=== PATIENT | female | born 1965 | race Caucasian/White ===

== ENCOUNTER 2017-02-06 08:50 | Emergency (ER) | payer OTHER ==
[2017-02-06 08:55] VITALS: TEMP 98.3; BMI 28.3
--- NOTE | 2017-02-06 10:08 | PDOC ---
History of Present Illness - General History Source: Patient Exam Limitations: No Limitations - History of Present Illness Initial Comments: 02/06/17 10:12 The patient is a 51 year old female, with a significant past medical history of hypothyroidism, who presents to the emergency department with dizziness, nausea , palpitations while at work today. She states that her heart has been racing for the past week. She states that she was set to see a director bioinformatics this upcoming Sunday for evaluation of possible new onset hypertension. She states that last week she biked 76 miles and exercises regularly without any complications. She states that she has stopped any stimulating habits such as alcohol and caffeine since finding out that she may have hypertension. The patient denies chest pain, shortness of breath and headache. Denies fever, chills, vomit, diarrhea and constipation. Denies dysuria, frequency, urgency and hematuria. Allergies: None Past surgical history: Left knee surgery Social history: No alcohol, tobacco or drug use reported <Satya Natarajan - Last Filed: 02/06/17 11:50> - General History Source: Patient Exam Limitations: No Limitations <Ada Ritchie - Last Filed: 02/07/17 08:34> - General Chief Complaint: Lightheaded Stated Complaint: HEART PALPITATIONS, DIZZINESS Time Seen by Provider: 02/06/17 09:44 Past History <Satya Natarajan - Last Filed: 02/06/17 11:50> - Past Medical History HTN: Yes (border line) Thyroid Disease: Yes (hypo) - Psycho/Social/Smoking Cessation Hx Anxiety: No Suicidal Ideation: No Smoking History: Never smoked Information on smoking cessation initiated: No Hx Alcohol Use: No Drug/Substance Use Hx: No Substance Use Type: None <Ada Ritchie - Last Filed: 02/07/17 08:34> - Past Medical History Allergies/Adverse Reactions: Allergies Allergy/AdvReac Type Severity Reaction Status Date / Time No Known Allergies Allergy Verified 02/06/17 08:52 Home Medications: Ambulatory Orders Levothyroxine [Synthroid -] 50 mcg PO DAILY 02/06/17 Triamcinolone Acetonide [Nasacort] 10.8 ml NS DAILY 02/06/17 Review of Systems - Review of Systems Able to Perform ROS?: Yes Comments:: 02/06/17 10:13 GENERAL/CONSTITUTIONAL: No: fever, chills, weakness, loss of appetite. HEAD, EYES, EARS, NOSE AND THROAT: No: change in vision, ear pain, discharge, sore throat, throat swelling. CARDIOVASCULAR: (+) Palpitations. No: chest pain, lightheadedness, syncope RESPIRATORY: No: cough, shortness of breath, wheezing, hemoptysis, stridor. GASTROINTESTINAL: (+) Nausea. No: vomiting, abdominal cramping, diarrhea, rectal bleeding, constipation. GENITOURINARY: No: dysuria, hematuria, frequency, urgency, flank pain. MUSCULOSKELET AL: No: back pain, neck pain, joint pain, muscle swelling or pain SKIN AND BREASTS: No: lesions, pallor, rash or easy bruising. NEUROLOGIC: (+) Dizziness. No: headache, paresthesias, weakness ENDOCRINE: No: unexplained weight gain or loss HEMATOLOGIC/LYMPHATIC: No: anemia, easy bleeding, swelling nodes <Satya Natarajan - Last Filed: 02/06/17 11:50> *Physical Exam - Vital Signs Last Vital Signs Temp Pulse Resp BP Pulse Ox 98.3 F 84 18 169/94 100 02/06/17 08:52 02/06/17 08:52 02/06/17 08:52 02/06/17 08:52 02/06/17 08:52 - Physical Exam Comments: 02/06/17 10:13 GENERAL: The patient is in no acute distress. HEAD: Normal with no signs of trauma. EYES: PERRLA, EOMI, sclera anicteric, conjunctiva clear. ENT: Ears normal, nares patent, oropharynx clear without exudates. Moist mucous membranes. NECK: Normal range of motion, supple without lymphadenopathy, JVD, or masses. LUNGS: Breath sounds equal, clear to auscultation bilaterally. No wheezes, and no crackles. HEART:Regular rate and rhythm, normal S1 and S2 without murmur, rub or gallop. ABDOMEN: Soft, nontender, normoactive bowel sounds. No guarding, no rebound. EXTREMITIES: Normal range of motion, no edema. No clubbing or cyanosis. No erythema, or tenderness. NEUROLOGICAL: Cranial nerves II through XII grossly intact. Normal speech. No focal neurological deficits. MUSCULOSKELETAL: Back non-tender to palpation, no CVA tenderness SKIN: Warm, Dry, normal turgor, no rashes or lesions noted. <Satya Natarajan - Last Filed: 02/06/17 11:50> - Vital Signs Last Vital Signs Temp Pulse Resp BP Pulse Ox 98.3 F 84 18 169/94 100 02/06/17 08:52 02/06/17 08:52 02/06/17 08:52 02/06/17 08:52 02/06/17 08:52 <Ada Ritchie - Last Filed: 02/07/17 08:34> Heart Score/ECG Review #1 ECG reviewed & interpreted by me at: 14:08 02/06/17 14:08 Twelve-lead EKG was performed and reviewed by me. There is normal sinus rhythm with a normal rate of 87bpm. The axis is normal. The intervals are normal. There are no ST or T wave abnormalities. <Ada Ritchie - Last Filed: 02/07/17 08:34> ED Treatment Course - LABORATORY CBC & Chemistry Diagram: 02/06/17 10:00 02/06/17 10:00 <Satya Natarajan - Last Filed: 02/06/17 11:50> - LABORATORY CBC & Chemistry Diagram: 02/06/17 10:00 02/06/17 10:00 <Ada Ritchie - Last Filed: 02/07/17 08:34> Medical Decision Making - Medical Decision Making 02/06/17 11:50 Dr. Oliver was called regarding the patient at 10:56am. Dr. Oliver was consulted regarding the patient at 11:39am [phone] <Satya Natarajan - Last Filed: 02/06/17 11:50> - Medical Decision Making 02/06/17 10:07 A portion of this note was documented by scribe services under my direction. I have reviewed the details of the note, within reason, and agree with the documentation with the following case summary and management plan written by me. Nursing documentation reviewed and incorporated into medical decision making This is a 51 yo F with a history of hypothyroidism who presents to the Er with a complaint of lightheadedness She states she was in her usual state of health until this morning at work She was standing waiting to get coffee She noticed that she felt lightheaded (not vertiginous) She denies chest pain She denies palpitations She did feel nauseous No syncope No headache No focal weakness or numbness She states she could feel her heart beating fast but it did not feel irregular DD: arrhythmia, ACS, hyperthyroidism, electrolyte abnormality 02/06/17 10:51 Laboratory Tests 02/06/17 02/06/17 10:00 10:00 WBC 6.0 Hgb 13.9 Hct 41.7 Plt Count 243 Neutrophils % 69.9 Lymphocytes % 20.8 Sodium 140 Potassium 4.2 Chloride 102 Carbon Dioxide 26 Anion Gap 12 BUN 17 Creatinine 0.7 Random Glucose 92 Creatine Kinase 76 Troponin I < 0.02 02/06/17 10:51 02/06/17 13:[address] Oliver in the ER ECHO ordered ECHO reviewed by Dr Oliver Will plan to discharge to home Will give copies of all results Pt has appointment with cardiology this Sunday Clinical impression: palpitations Dr Oliver has arranged for this patient to have a Holter monitor! She should wear it tonight and return it tomorrow <Ada Ritchie - Last Filed: 02/07/17 08:34> *DC/Admit/Observation/Transfer - Attestations Scribe Attestion: 02/06/17 10:14 Documentation prepared by Satya Natarajan, acting as medical sociologist for Ada Ritchie MD <Satya Natarajan - Last Filed: 02/06/17 11:50> - Discharge Dispostion Admit: No <Ada Ritchie - Last Filed: 02/07/17 08:34> Diagnosis at time of Disposition: Palpitations - Discharge Dispostion Disposition: HOME Condition at time of disposition: Stable - Referrals Referrals: Cate Crowley MD [Primary Care Provider] - - Patient Instructions Printed Discharge Instructions: DI for Dizziness-Nonvertigo, DI for Palpitations Additional Instructions: Ms. Frank Thank you for coming in to the ER today Please follow up with your primary care physian and your Preventive Maintenance Coordinator Please return to the ER for ANY recurrence of symptoms, any new symptoms, any concerns or complaints - Post Discharge Activity Work/School Note: Back to Work
[2017-02-06 10:30] LABS: BASOPHIL 0.5 % (0-2.0); EOSINOPHIL 1.3 % (0-4.5); MCH 32.1 pg (25.7-33.7); MCHC 33.3 g/dl (32.0-36.0); MEAN CELL VOLUME 96.4 fl (80-96); MEAN PLT VOLUME 8.5 fl (7.5-11.1); NEUTROPHILS 69.9 % (42.8-82.8); PLATELET COUNT 243 K/MM3 (134-434); RDW 12.7 % (11.6-15.6)
[2017-02-06 10:37] LABS: ALBUMIN 3.6 g/dl (3.4-5.0); ANION GAP 12 (8-16); BILIRUBIN,TOTAL 0.3 mg/dL (0.2-1.0); CALCIUM 8.6 mg/dL (8.5-10.1); CO2 26 mmol/L (21-32); CREATININE 0.7 mg/dL (0.55-1.02); GLUCOSE,RANDOM 92 mg/dL (74-106); SGOT/AST 20 U/L (15-37); SGPT/ALT 23 U/L (12-78); TOT PROT 7.2 g/dl (6.4-8.2)
--- NOTE | 2017-02-06 10:39 | EKG ---
Test Reason : Blood Pressure : / mmHG Vent. Rate : 087 BPM Atrial Rate : 087 BPM P-R Int : 156 ms QRS Dur : 080 ms QT Int : 364 ms P-R-T Axes : 057 063 054 degrees QTc Int : 438 ms NORMAL SINUS RHYTHM POSSIBLE LEFT ATRIAL ENLARGEMENT BORDERLINE ECG NO PREVIOUS ECGS AVAILABLE Confirmed by VIJAYA ALBERT, ERIC ([id number]) on 02/06/2017 10:39:19 AM Referred By: Confirmed By:ERIC LILLY MD
[2017-02-06 10:40] LABS: ALK PHOS 52 U/L (45-117); TROPONIN I < 0.02 ng/ml (0.00-0.05)
--- NOTE | 2017-02-06 13:21 | CON.CARD ---
Consult Consult Specialty:: cardiiology Reason for Consultation:: palpitations - History of Present Illness History of Present Illness: The patient is a 51 year old white female, with a significant past medical history of hypothyroidism, recentl blood pressure elevation, who presents to the emergency department with dizziness, nausea, palpitations while at work today; she found it difficult to see the words on the page she was reading. She states that her heart has been racing for the past week. She states that she was set to see a pile driver this upcoming Sunday for evaluation of possible new onset hypertension. She states that last week she biked 76 miles and exercises regularly without any complications. She states that she has stopped any stimulating habits such as alcohol and caffeine since finding out that she may have hypertension. The patient denies chest pain, shortness of breath and headache. Denies fever, chills, vomit, diarrhea and constipation. Denies dysuria, frequency, urgency and hematuria. Pt has no history of syncope. Until recently, she was working out regularly. The first episode of palpitations occurred shortly after she had finished a 75 mile bike ride. Allergies: None Past surgical history: Left knee surgery Social history: No alcohol, tobacco or drug use reported - History Source History Provided By: Patient, Medical Record Limitations to Obtaining History: No Limitations - Past Medical History Cardio/Vascular: Yes: HTN (recently noted) Reproductive: Yes: Other (regular menses) Musculoskeletal: Yes: Other (s/p ACL repair left knee) - Past Surgical History Additional Surgical History: left ACL knee repair - Alcohol/Substance Use Hx Alcohol Use: No - Smoking History Smoking history: Never smoked Home Medications - Allergies Allergies/Adverse Reactions: Allergies Allergy/AdvReac Type Severity Reaction Status Date / Time No Known Allergies Allergy Verified 02/06/17 08:52 - Home Medications Home Medications: Ambulatory Orders Levothyroxine [Synthroid -] 50 mcg PO DAILY 02/06/17 Triamcinolone Acetonide [Nasacort] 10.8 ml NS DAILY 02/06/17 Family Disease History - Family Disease History Family Disease History: Heart Disease: Father (SC at 60 yrs old; stents), Brother (unknown exactly what he has) Review of Systems - Review of Systems Constitutional: reports: No Symptoms Eyes: reports: No Symptoms HENT: reports: No Symptoms Neck: reports: No Symptoms Cardiovascular: reports: Palpitations Respiratory: reports: No Symptoms Gastrointestinal: reports: No Symptoms Genitourinary: reports: No Symptoms Breasts: reports: No Symptoms Reported Musculoskeletal: reports: No Symptoms Integumentary: reports: No Symptoms Neurological: reports: No Symptoms Endocrine: reports: No Symptoms Hematology/Lymphatic: reports: No Symptoms Psychiatric: reports: Depression (hx depression years ago; she treated herself, and "I haven't had a problem for years"; denies anxiety/panic.) - Risk Factors Known Risk Factors: Yes: Other (hypothyroid; HTN) Vital Signs: Vital Signs Temperature 98.3 F 02/06/17 08:52 Pulse Rate 84 02/06/17 08:52 Respiratory Rate 18 02/06/17 08:52 Blood Pressure 169/94 02/06/17 08:52 O2 Sat by Pulse Oximetry (%) 100 02/06/17 08:52 Constitutional: Yes: Anxious Eyes: Yes: WNL HENT: Yes: WNL Neck: Yes: WNL Respiratory: Yes: WNL Gastrointestinal: Yes: Soft Renal/: No: Anuria Cardiovascular: Yes: WNL JVD: No Carotid Bruit: No PMI: Non-Displaced Heart Sounds: Yes: S1, S2, S4 Murmur: Yes: Systolic Murmur, Grade 1 Extremities: Yes: WNL Edema: No Integumentary: Yes: WNL Neurological: Yes: Alert, Oriented ...Motor Strength: WNL Psychiatric: Yes: WNL - Other Data Labs, Other Data: CBC, BMP 02/06/17 10:00 02/06/17 10:00 Troponin, BNP 02/06/17 10:00 Troponin I < 0.02 Troponin, BNP 02/06/17 10:00 Troponin I < 0.02 Ejection Fraction %: LVEF > or = 40 % Imaging - Results Ultrasound: Image Reviewed (echo: normal LVEF; mild MR (no MVP); normal chamber sizes) Problem List - Problems (1) Palpitations Assessment/Plan: No arrhythmias noted since coming to ER. EKG: normal sinus rhythm; normal study. ECHO: preliminary results yao normal LVEF and camber sizes; no MVP; mild MR. TNI < 0.02; TSH WNL. Last week, pt stopped coffee (still drinks decaf) and other products she thougt might make her heart race. If BP remains hish, consider starting an AV conduction venecia for BP and HR. R/o PSVT; pt will benefit from Holter/event recorder monitoring. From a cardiac standpoint, she may be followed up as an outpatient with her pile driver this week. Code(s): R00.2 - PALPITATIONS (2) HTN (hypertension) Assessment/Plan: f/u serially; pt was told over the past few weeks that her BP has been elevated ; she is presntly on no medications. Code(s): I10 - ESSENTIAL (PRIMARY) HYPERTENSION (3) Hypothyroid Assessment/Plan: On Synthroid; TSH WNL. Code(s): E03.9 - HYPOTHYROIDISM, UNSPECIFIED (4) Tinnitus Assessment/Plan: Pt was on aspirin until recently. She now takes turmeric. Code(s): H93.19 - TINNITUS, UNSPECIFIED EAR
[2017-02-06 14:13] VITALS: BP 127/76; PULSE 87
--- NOTE | 2017-02-08 12:57 | HOL ---
Hook-up date: 2017-02-06 14:56:00 Duration: 24:00:00 Test Indications: PALPITATIONS/HTN Medications: 550339 QRS complexes 1 Ventricular ectopics which represent <1 % of total QRS comp. 28 Supraventricular ectopics which represent <1 % of total QRS comp. * Paced QRS complexs which represent % of total QRS comp. * % of Time Classified as Noise VENTRICULAR ECTOPY 1 Isolated 0 Bigeminal Cycles 0 Couplets 0 Runs 0 Beats in Runs * Beats LONGEST at * BPM at :: -- * Beats FASTEST at * BPM at :: -- SUPRAVENTRICULAR ECTOPY 28 Isolated 0 Couplets 0 Runs 0 Beats in Runs * Beats LONGEST at * BPM at :: -- * Beats FASTEST at * BPM at :: -- HEART RATES 55 MIN at 03:25:44 2017-02-07 87 AVG 149 MAX at 12:52:45 2017-02-07 LONGEST RR 1.128 secs at 02:40:06 2017-02-07 SCANNED BY MARCELL HANNAH 02/08/2017 1. Baseline rhythm is sinus with avg hr 87 and range 55-149. 2. No significant pauses/bradycardia. 3. Rare PVCs/PACs. 4. No VT, VF, Afib, Aflutter, SVT 5. No diary submitted. Confirmed by PAT ALBERT, BREANN ([id number]) on 02/08/2017 12:56:26 PM Referred By: Overread By: BREANN STEWART MD
== END 2017-02-06 15:04 | disposition home or self-care (01) ==
LOC: JER 08:50
DX: R00.2 Palpitations (principal); I10 Essential (primary) hypertension; E03.9 Hypothyroidism, unspecified; H93.19 Tinnitus, unspecified ear
CPT/HCPCS: 36415; 80053; 82550; 84443; 84484; 85025; 93005; 93010; 93225; 93226; 93306-TC; 99284-25